=== PATIENT | female | born 1960 | race Caucasian/White ===

== ENCOUNTER 2017-04-12 21:36 | Emergency (ER) | payer BC, OTHER ==
[~2017-04-12] VITALS: Ht 162.6 cm; Wt 82.0 kg
[2017-04-12 21:44] VITALS: Ht 162.6 cm; Wt 82.0 kg
[2017-04-13] MEDS ORDERED: GUAI120S26 PO (02:10)
[2017-04-13] MEDS ORDERED: DICY10CA60 PO (02:10)
[2017-04-13] MEDS ORDERED: NITR-58 PO (02:10)
[2017-04-13] MEDS ORDERED: CETI10CA PO (02:10)
--- NOTE | 2017-04-13 02:15 | ERD ---
ER Documentation Chief Complaint Chief Complaint diarrhea d/t ATB taking for UTI; pt c/o cough also HPI 57-year-old female presents to emergency department for multiple complaints. Patient started to have diarrhea after taking Keflex at home, with antibiotic change, she is taking Keflex for urinary tract infection. Patient started to have diarrhea today, does not have any blood in her stool or black stool. Patient does not have any fever or chills. Patient is vomiting abdominal pain or vomiting. Patient denies any recent travel. Patient also has been having dry cough, does not cough up any phlegm or blood. Patient is vomited shortness of breath or wheezing. Patient has been having runny nose nasal congestion clear nasal discharge. Patient also has been having on and off wheezing, took albuterol at home with mild relief. ROS All systems reviewed and are negative except as per history of present illness. Medications Home Meds Active Scripts Dicyclomine Hcl* (Bentyl*) 10 Mg Capsule, 10 MG PO QID, #20 CAP Prov:HAMZAH MAYER NP 04/13/17 Nitrofurantoin Monohyd Macrocr* (Macrobid*) 100 Mg Capsr, 100 MG PO BID for 7 Days, CAP Prov:HAMZAH MAYER NP 04/13/17 Cetirizine Hcl* (Zyrtec*) 10 Mg Capsule, 10 MG PO DAILY, #30 TAB.CHEW Prov:HAMZAH MAYER NP 04/13/17 Ogvoitpvgyx-N-Hshtxebpzt Hb* (Guaifenesin* DM Syrup) 120 Ml Syrup, 10 ML PO Q4H Y for COUGH, #120 ML Prov:HAMZAH MAYER NP 04/13/17 Allergies Allergies: Coded Allergies: No Known Allergy (Unverified , 04/12/17) PMhx/Soc Medical and Surgical Hx: pt denies Medical Hx, pt denies Surgical Hx History of Surgery: No Anesthesia Reaction: No Hx Neurological Disorder: No Hx Respiratory Disorders: No Hx Cardiac Disorders: No Hx Psychiatric Problems: No Hx Miscellaneous Medical Probl: No Hx Alcohol Use: No Hx Substance Use: No Hx Tobacco Use: No Smoking Status: Never smoker FmHx Family History: No coronary disease, No diabetes, No other Physical Exam Vitals Vital Signs Date Time Temp Pulse Resp B/P Pulse Ox O2 Delivery O2 Flow Rate FiO2 04/12/17 21:44 97.3 86 20 155/80 97 Physical Exam GENERAL: The patient is well developed and appropriate for usual state of health, in no apparent distress. CHEST: Clear to auscultation bilaterally. There are no rales, wheezes or rhonchi. HEART: Regular rate and rhythm. No murmurs, clicks, rubs or gallops. No S3 or S4. ABDOMEN: Soft, nontender and nondistended. Good bowel sounds. No rebound or guarding. No gross peritonitis. No gross organomegaly or masses. No Rivera sign or McBurney point tenderness. BACK: No midline or flank tenderness. EXTREMITIES: Equal pulses bilaterally. There is no peripheral clubbing, cyanosis or edema. No focal swelling or erythema. Full range of motion. Grossly neurovascularly intact. NEURO: Alert and oriented. Cranial nerves 2-12 intact. Motor strength in all 4 extremities with 5/5 strength. Sensation grossly intact. Normal speech and gait. SKIN: There is no apparent rash or petechia. The skin is warm and dry. HEMATOLOGIC AND LYMPHATIC: There is no evidence of excessive bruising or lymphedema. No gross cervical, axillary, or inguinal lymphadenopathy. Procedures/MDM Medical Decision Making: Patient symptoms are most likely consistent with acute bronchitis. There is low suspicion for Pneumonia at this time since patients lungs sounds are clear, patient O2 saturation is normal and patient doesnt show any respiratory distress. Radiology exams not indicated at this time. There is low suspicion for other cardiopulmonary emergencies at this time such as CHF, Pulmonary Embolism, Pneumothorax, or any other cardiopulmonary emergencies at this time. There is low suspicion for sepsis. Patient appears well and is hemodynamically stable. Fever is controlled with medicines. Patient symptoms of urinary tract infection is controlled at this time, changed antibiotics from Keflex to Macrobid, patient is in the diarrhea may be also from viral illness. No symptoms of dehydration. No active vomiting. No symptoms of any abdominal emergencies. Abdominal exam is normal. Disposition: Home. Condition: Stable Prescriptions: Bentyl, Macrobid, Zyrtec, guaifenesin DM Instructions: Patient is advised to take medications as prescribed. Patient is advised to rest. Patient advised to increase fluid intake, do humidifier at home and if possible, do salt water gargles. Patient is advised that if symptoms are worse, shortness of breath, uncontrolled fever, stridor, vomiting, worst signs and symptoms to return to emergency department immediately. Otherwise, patient is advised to follow up with primary doctor in 5-7 days. Disclaimer: Inadvertent spelling and grammatical errors are likely due to EHR/ dictation software use and do not reflect on the overall quality of patient care. Also, please note that the electronic time recorded on this note does not necessarily reflect the actual time of the patient encounter. Departure Diagnosis: Primary Impression: Acute bronchitis Bronchitis organism: unspecified organism Qualified Code: J20.9 - Acute bronchitis, unspecified organism Additional Impression: Diarrhea Diarrhea type: unspecified type Qualified Code: R19.7 - Diarrhea, unspecified type Condition: Stable Patient Instructions: Treating Diarrhea, Bronchitis, Antiobiotic Treatment ( Adult) HAMZAH MAYER NP Apr 13, 2017 02:14
[2017-04-13 02:35] VITALS: BP 145/81; PULSE 79; RESP 16; TEMP 98
== END 2017-04-13 02:40 | disposition home or self-care (01) ==
LOC: FTE 21:36
DX: J20.9 Acute bronchitis, unspecified (principal)
CPT/HCPCS: 99283

== ENCOUNTER 2017-08-16 05:29 | Emergency (ER) | END 2017-08-16 08:45 | disposition home or self-care (01) ==